=== PATIENT | female | born 1950 | race Caucasian/White ===

== ENCOUNTER 2020-03-13 13:18 | Outpatient (CLI) | payer MEDICARE, SELFPAY ==
--- NOTE | 2020-03-13 13:26 | MM_ITS ---
WS: [id number] Bilateral screening digital mammogram, 03/13/2020 Clinical Data: SCREENING Comparison: 03/10/2019. Findings: The breast parenchymal pattern shows fat replacement. No spiculated masses or clustered calcification s are seen. There are no secondary signs of carcinoma. There are small lymph nodes in both axilla. Th ere are benign calcifications in both breasts. MM/[place] [id number] Impression: 1. Negative bilateral mammogram unchanged. 2. Recommend annual screening mammograms. BIRADS: 1-Negative FOLLOW UP: 1 Year Follow-up The CAD formula checker was used.
--- NOTE | 2020-03-13 15:11 | XR_ITS ---
WS: [id number] Bone mineral density performed on a [employer], 03/13/2020 Clinical data: POSTMENOPAUSAL ESTROGEN DEFICIENCY Findings: The first 4 lumbar vertebral bodies demonstrated the bone mineral density of 1.230 g/cm2 for a young adult T score of 0.4. Measurement of the left hip reveals a bone mineral density of 0.876 g/cm2 with a young adult T score of -1.0. Measurement of the right hip reveals the bone mineral density of 0.851 g/cm2 for young adult T score of -1.2. XR/XR DEXA axial skeleton* [id number] Impression: 1. The bone mineral density of the lumbar spine and the left hip is normal. 2. The bone mineral density of the right hip shows osteopenia.
== END 2020-03-13 13:19 | disposition home or self-care (01) ==
PROVIDERS: PCP Family Medicine; Visit Provider Nurse Practitioner
DX: Z12.31 Encounter for screening mammogram for malignant neoplasm of breast (principal); Z78.0 Asymptomatic menopausal state
CPT/HCPCS: 77067; 77080

== ENCOUNTER 2022-03-15 12:46 | Outpatient (CLI) | payer MEDICARE, SELFPAY ==
--- NOTE | 2022-03-15 | MM_ITS ---
WS: [id number] VIEWS: MLO and CC views both breasts. 3D digital tomosynthesis is also included in this exam. Comparison made with prior exam of 03/10/2019, 03/13/2020.. Findings: There was no sign of mass, architectural distortion or suspicious calcification in either breast. Sc attered fibroglandular densities MM/[place] [id number] Impression: BI-RADS: 2-Benign FOLLOW-UP: 1 Year Follow-up This mammogram was also analyzed by the Computer Aided Detection System R2 Imag e Dock Manager.
--- NOTE | 2022-03-15 12:58 | XR_ITS ---
WS: [id number] Bone mineral density performed on a [facility], 03/15/2022 Clinical data: SCREENING Comparison: DEXA scan, 03/13/2020 Findings: The first 4 lumbar vertebral bodies demonstrated the bone mineral density of 1.206 g/cm2 for a young adult T score of 0.2. This bone mineral density measurement represents a 2% decrease from the previo us scan. Measurement of the left hip reveals a bone mineral density of 0.890 g/cm2 with a young adult T score of -0.9. This bone mineral density measurement represents a slight improvement compared to the previo us scan. Measurement of the right hip reveals the bone mineral density of 0.830 g/cm2 for young adult T score of -1.4. This bone mineral density measurement wrist presents a slight decrease compared to the previ ous scan. XR/XR DEXA axial skeleton* [id number] Impression: 1. Slight decrease in bone mineral density of the lumbar spine and the right hi p. 2. Slight increase in bone mineral density of the left hip.
== END 2022-03-15 12:47 | disposition home or self-care (01) ==
LOC: RAD 12:46
PROVIDERS: PCP Family Medicine; Visit Provider Family Medicine
DX: Z12.31 Encounter for screening mammogram for malignant neoplasm of breast (principal); Z78.0 Asymptomatic menopausal state
CPT/HCPCS: 77063; 77067; 77080

== ENCOUNTER 2024-01-15 15:01 | Outpatient (CLI) | payer OTHER, SELFPAY ==
--- NOTE | 2024-01-15 15:00 | MM_ITS ---
WS: [id number] BILATERAL SCREENING DIGITAL TOMOSYNTHESIS MAMMOGRAM WITH CAD HISTORY: SCREENING COMPARISON: 03/15/2022, 03/13/2020 Bilateral CC and MLO views with tomosynthesis and synthetic mammography submitted. Computer aided det ection analyzed. Breast composition: There are scattered areas of fibroglandular density. No suspicious masses, microc alcifications or architectural distortion. Benign scattered round calcifications in each breast. MM/MM scr BI tomosynthesis [id number] IMPRESSION: BI-RADS: 2 - Benign. FOLLOW UP: 1 Year Follow-up
== END 2024-01-15 15:02 | disposition home or self-care (01) ==
LOC: MOBLMAM 15:06
PROVIDERS: PCP Family Medicine; Visit Provider Family Medicine
DX: Z12.31 Encounter for screening mammogram for malignant neoplasm of breast (principal); R92.323 Mammographic fibroglandular density, bilateral breasts; R92.1 Mammographic calcification found on diagnostic imaging of breast
CPT/HCPCS: 77063; 77067

== ENCOUNTER 2024-08-20 12:56 | Outpatient (RCR) | payer MEDICARE, SELFPAY | END 2024-08-28 23:59 | disposition home or self-care (01) | LOC: SPT 12:56 | PROVIDERS: PCP Family Medicine; Visit Provider Nurse Practitioner Family | DX: M16.12 Unilateral primary osteoarthritis, left hip (principal); M54.50 Low back pain, unspecified | CPT/HCPCS: 97161 ==

== ENCOUNTER 2024-08-29 05:00 | Outpatient (RCR) | payer MEDICARE, SELFPAY | END 2024-09-20 09:31 | disposition home or self-care (01) | LOC: SPT 05:00 | PROVIDERS: PCP Family Medicine; Visit Provider Nurse Practitioner Family | DX: M16.12 Unilateral primary osteoarthritis, left hip (principal); M54.50 Low back pain, unspecified; M25.552 Pain in left hip | CPT/HCPCS: 97530 ==

== ENCOUNTER 2025-03-16 09:58 | Outpatient (CLI) | payer MEDICARE, SELFPAY ==
--- NOTE | 2025-03-16 10:00 | MM_ITS ---
WS: [id number] BILATERAL SCREENING DIGITAL TOMOSYNTHESIS MAMMOGRAM WITH CAD HISTORY: SCREENING COMPARISON: 01/15/2024, 03/15/2022 Bilateral CC and MLO views with tomosynthesis and synthetic mammography submitted. Computer aided detection analyzed. Breast composition: There are scattered areas of fibroglandular density. No suspicious masses, microcalcifications or architectural distortion. Benign round calcifications in each breast. MM/MM scr BI tomosynthesis [id number] IMPRESSION: BI-RADS: 2 - Benign. FOLLOW UP: 1 Year Follow-up
== END 2025-03-16 09:59 | disposition home or self-care (01) ==
LOC: MOBLMAM 10:00
PROVIDERS: PCP Family Medicine; Visit Provider Family Medicine
DX: Z12.31 Encounter for screening mammogram for malignant neoplasm of breast (principal); R92.323 Mammographic fibroglandular density, bilateral breasts; R92.1 Mammographic calcification found on diagnostic imaging of breast
CPT/HCPCS: 77063; 77067